=== PATIENT | male | born 1980 | race Caucasian/White ===

== ENCOUNTER 2019-02-24 15:13 | Emergency (ER) | payer OTHER ==
[~2019-02-24] VITALS: Ht 162.6 cm; Wt 71.4 kg
[2019-02-24 15:13] VITALS: BP 136/84
[2019-02-24] MEDS ORDERED: HYDR-3713 (15:19)
[2019-02-24] MEDS ORDERED: METO1TAB32 (15:19)
[2019-02-24] MEDS ORDERED: TIZA2TA (15:19)
[2019-02-24] MEDS ORDERED: PANT20TA2 (15:19)
[2019-02-24] MEDS ORDERED: LOSA50TA88 (15:19)
[2019-02-24 17:13] LABS: BASO # 0.1 10^3/uL (0.0-0.2); BASO % 0.5 % (0.0-1.0); EOS # 0.1 10^3/uL (0.0-0.5); EOS % 1.5 % (0.0-3.0); HEMATOCRIT 49.4 % (42.0-52.0); HEMOGLOBIN 17.2 g/dl (13.5-17.5); LYMPH # 2.7 10^3/uL (1.5-5.0); LYMPH % 28.1 % (24.0-44.0); MEAN CORPUSCULAR HEMOGLOBIN 34.2 pg (27.0-33.0); MEAN CORPUSCULAR HGB CONC 34.8 g/dl (32.0-36.5); MEAN CORPUSCULAR VOLUME 98.2 fl (80.0-96.0); MONO # 0.6 10^3/uL (0.0-0.8); MONO % 6.4 % (0.0-5.0); NEUTROPHILS % 63.2 % (36.0-66.0); PLATELET COUNT, AUTOMATED 296 10^3/uL (150-450); RED BLOOD COUNT 5.03 10^6/uL (4.30-6.10); WHITE BLOOD COUNT 9.6 10^3/uL (4.0-10.0)
[2019-02-24 17:26] LABS: BLOOD UREA NITROGEN 9 MG/DL (7-18); CALCIUM LEVEL 9.1 MG/DL (8.5-10.1); CARBON DIOXIDE LEVEL 31 MEQ/L (21-32); CHLORIDE LEVEL 101 MEQ/L (98-107); CK-MB VALUE MASS 1.3 NG/ML (<3.6); CPK CREATINE PHOSPHOKINASE 154 U/L (39-308); CREATININE FOR GFR 1.05 MG/DL (0.70-1.30); GLOMERULAR FILTRATION RATE > 60.0 (>60); GLUCOSE, FASTING 103 MG/DL (70-100); MB/CK RELATIVE INDEX 0.84 (< OR =4); POTASSIUM SERUM 4.8 MEQ/L (3.5-5.1); SODIUM LEVEL 137 MEQ/L (136-145); TROPONIN I < 0.02 NG/ML (< 0.10)
[2019-02-24 17:27] LABS: INFLUENZA A AMPLIFICATION NEGATIVE (NEGATIVE); INFLUENZA B AMPLIFICATION NEGATIVE (NEGATIVE)
[2019-02-24] MEDS ORDERED: PROAAER10 INH (18:41)
[2019-02-24] MEDS ORDERED: TESS100C PO (18:45)
--- NOTE | 2019-02-25 10:25 | REP ---
Two-view chest: 02/24/2019. Indication: Chest pain. Comparison: None. Findings: The lungs are clear. There is no pleural effusion or pneumothorax. The cardiomediastinal silhouette is normal. Impression: Clear lungs. Electronically Signed by Mao Alvarez DO 02/25/2019 10:17 A
--- NOTE | 2019-02-25 21:23 | ECGEPIP ---
[facility] - ED Test Date: 2019-02-24 Pat Name: TAN FELDER Department: Room: - Gender: Male Emergency Room Rn: samy : 1980 Requested By: TATE Mancuso PA-C Order Number: [id number] Reading MD: Gabi Tomas Measurements Intervals [place] Rate: 67 P: 0 WV: 177 QRS: 17 QRSD: 100 T: 39 QT: 404 QTc: 428 Interpretive Statements SINUS RHYTHM NO PRIOR Electronically Signed on 02-25-2019 21:22:54 EDT by Gabi Tomas
== END 2019-02-24 18:58 | disposition home or self-care (01) ==
LOC: M ED 15:13
DX: J00 Acute nasopharyngitis [common cold] (principal); J06.9 Acute upper respiratory infection, unspecified; B34.9 Viral infection, unspecified; R07.1 Chest pain on breathing; R05 Cough; F10.10 Alcohol abuse, uncomplicated; H92.09 Otalgia, unspecified ear; I10 Essential (primary) hypertension; Z86.73 Personal history of transient ischemic attack (TIA), and cerebral infarction without residual deficits; K21.9 Gastro-esophageal reflux disease without esophagitis; F17.200 Nicotine dependence, unspecified, uncomplicated; Z90.49 Acquired absence of other specified parts of digestive tract; Z79.899 Other long term (current) drug therapy